=== PATIENT | female | born 1970 | race Caucasian/White ===

== ENCOUNTER 2019-10-12 00:15 | Day surgery (SDC) | payer OTHER, SELFPAY ==
[2019-09-27 15:28] VITALS: BMI 27.4
--- NOTE | 2019-10-11 17:36 | WPDANESEPP ---
Anes - Eval Pre Procedure Procedure: Operation Date: 10/12/19 08:30 Proposed Procedures p Bilateral Breast Implant Exchange - Kd Charles MD Date/Time: 10/11/19 17:36 Pre Op Diagnosis: Hx Of Breast Augmentation Patient Data Age: 49 Gender: F Height: 5 ft 3 in Weight: 70.31 kg Allergies Allergy/AdvReac Type Severity Reaction Status Date / Time erythromycin base Allergy Unknown Vomiting Verified 09/27/19 15:39 morphine Allergy Unknown Vomiting Verified 09/27/19 15:39 Home Medications Medication Instructions Recorded Confirmed Type metformin 1,000 mg tablet 1,000 mg PO BID 09/16/19 09/27/19 History Patient hx anesthesia problems: post op nausea/vomiting Family hx anesthesia problems: none PMFSH Past Medical History Medical History (Updated 10/11/19 @ 17:37 by Macho Holliday CRNA) Anxiety Endometriosis PCOS (polycystic ovarian syndrome) Renal calculi Surgical History Surgical History History of breast augmentation Family History Family History Grandparent Family history of coronary artery disease Diabetes mellitus Father Hypertension Diabetes mellitus Other Family history of cardiovascular disease Social History Social History Smoking status: Former smoker Second hand tobacco smoke exposure: No Smoking end date: 09/08/09 Alcohol intake: current Exam Day of Procedure 10/11/19 17:36
[2019-10-12] VITALS (8 sets, daily range): BP systolic 104–146; BP diastolic 67–99; PULSE 75–110; RESP 10–16; TEMP 36.6–36.9; O2SAT 94–100; BMI 26.8
--- NOTE | 2019-10-12 06:57 | WPDHPUPDATE1 ---
History and Physical Update Update Date/Time: 10/12/19 06:57 History and Physical has been reviewed, including an updated exam of the patient. There are NO changes in the patient's condition. Risks, benefits, and alternatives have been discussed and questions answered. Patient agrees to proceed with procedure.
[2019-10-12] MEDS: LACTATED RINGERS 1,000 ML 30 ML IV CONT ×2 (07:15→10:19)
--- NOTE | 2019-10-12 07:53 | WPDANESEPPF ---
Anes - Initial Pre Proc Eval Procedure: Operation Date: 10/12/19 08:30 Proposed Procedures p Bilateral Breast Implant Exchange - Kd Charles MD Date/Time: 10/12/19 07:53 Surgeon: Kd Charles MD Pre Op Diagnosis: Hx Of Breast Augmentation Patient Data Age: 49 Gender: F Height: 5 ft 3 in Weight: 68.6 kg Last Vital Signs Temp 97.8 F 10/12/19 06:50 Pulse 83 10/12/19 06:50 Resp 16 10/12/19 06:50 BP 104/67 10/12/19 06:50 Pulse Ox 100 10/12/19 06:50 Allergies Allergy/AdvReac Type Severity Reaction Status Date / Time erythromycin base Allergy Unknown Vomiting Verified 09/27/19 15:39 morphine Allergy Unknown Vomiting Verified 09/27/19 15:39 Home Medications Medication Instructions Recorded Confirmed Type metformin 1,000 mg tablet 1,000 mg PO BID 09/16/19 09/27/19 History Patient hx anesthesia problems: post op nausea/vomiting Family hx anesthesia problems: none PMFSH Past Medical History Medical History (Updated 10/11/19 @ 17:37 by Macho Holliday CRNA) Anxiety Endometriosis PCOS (polycystic ovarian syndrome) Renal calculi Surgical History Surgical History History of breast augmentation Family History Family History Grandparent Family history of coronary artery disease Diabetes mellitus Father Hypertension Diabetes mellitus Other Family history of cardiovascular disease Social History Social History Smoking status: Former smoker Second hand tobacco smoke exposure: No Smoking end date: 09/08/09 Alcohol intake: current Anes - Eval Final PreProcedure Day of Procedure 10/12/19 07:53 Patient weight: normal Heart: regular rate and rhythm Lungs: clear to auscultation Airway: Mallampati scale class II Neurological: alert and oriented Last oral intake: >/= 8 hours ASA classification: II Emergent: no Anesthetic plan: proceed Anesthesia type and monitoring: general LMA and standard monitoring Informed Consent: The patient's anesthetic plan and its attendant risks and benefits were discussed with the patient/family/POA. Questions were solicited and answers provided to the satisfaction of the patient/family/POA.
[2019-10-12] MEDS: SCOPOLAMINE 1.5 MG PATCH TRANSDERM (08:00)
[2019-10-12] MEDS: ceFAZolin 2 GM/D5W 50 ML 2 GM/50 ML BAG IVPB (08:29)
[2019-10-12] MEDS: LIDO 1%/EPINEPHRINE 1:100,000 20 ML VIAL 60 ML INFILTRATE (09:45)
--- NOTE | 2019-10-12 10:21 | PM.PROC ---
Procedure Note - Detailed Date of procedure: 10/12/19 Pre-op diagnosis: Hx Of Breast Augmentation Post-op diagnosis: same Procedure performed: Bilateral implant exchange -with capsulectomy - partial -dual plane 2 Description of procedure: She is here today for bilateral breast implant exchange. She has previously had shaped style 410 implants. She has always had a more upper pole fullness than she desired. She would like to exchange for smooth implant. Removal of capsule. They have spent extensive time thinking about this and they have decided they would like to send the capsule to pathology in the understand they will get a charge for this. Previously and again today the risks, benefits, alternatives were discussed in extensive detail. I wanted her to be very realistic about the risks involved as well as expectations. We discussed aftercare and what to monitor for. Made sure answered all of her questions to her satisfaction today and consent was obtained. Marked in the preoperative holding area with their verification. The patient was taken to the operating room placed supine on the operating table. Anesthesia was provided by anesthesiology. A surgical time-out was taken. We cleansed the skin and 1% lidocaine and 0.25% Marcaine with epinephrine was used anesthetize as a field block. She was prepped and draped in a standard sterile fashion. Tegaderm nipple Freeman were placed. A 15 blade used to make an incision at the inframammary fold excising the previous scar. Dissection was continued down until I saw the capsule. I elevated superiorly and removed the majority of the capsule. I did leave the posterior wall intact as was well adherent to the chest wall. I cauterized any remaining capsule. When he removed was sent to pathology. Removed the implants and verified they were intact. I then elevated superficial to the muscle and a dual plane 2 fashion. She had a little bit of glandular ptosis and we had talked about this preoperatively trying to improve this with a dual plane technique. I irrigated with 3 L total of saline on TUR tubing. I then introduced a Sizer and inflated using a fill kit. Tailor tacked into place and placed her in a sitting position to verify the appearance. She had a great sitting on table appearance. I then copiously irrigated with saline solution and verified a strict hemostasis. Next the use a triple antibiotic and Betadine containing solution to irrigate the pocket. I washed my gloves with the triple antibiotic and Betadine solution. We washed the implant immediately upon opening it with this solution and only opened it when we needed it. I used implant funnel and no-touch technique. The implant was introduced into the pocket using the funnel. Having verified positioning of the implant this was closed using 2-0 Vicryl followed by 3-0 Monocryl in a running subcuticular 4-0 Monocryl followed by tissue glue. We once again sat her and verified the appearance. Fluffs, Ed wrap, and surgical bra were placed. Patient was awoke and taken to PACU without difficulty. All instrument sponge counts were correct at the end of the case. Implants: Right: REF SSM-330 SN [id number] Left: REF SSM-[id number] SN [id number] Anesthesia: GLMA Surgeon: Kd Charles MD Estimated blood loss (mL): 10 Drains: No Packing: No Pathology: yes (Bilateral breast capsule) Complications: No immediate complications Condition: stable Disposition: PACU
[2019-10-12] MEDS: ONDANSETRON INJ 4 MG/2 ML VIAL IV PUSH (10:22)
[2019-10-12] MEDS: HYDROMORPHONE HCL 1 MG/ML INJ 0.5 MG IV PUSH ×2 (10:28→10:41)
== END 2019-10-12 12:11 | disposition home or self-care (01) ==
PROVIDERS: PCP Family Medicine; Visit Provider Surgery Plastic and Reconstructive Surgery
PROC: (CPT 19342; principal; 2019-10-12 08:30)
DX: Z45.811 Encounter for adjustment or removal of right breast implant (principal); Z45.812 Encounter for adjustment or removal of left breast implant; E28.2 Polycystic ovarian syndrome; F41.9 Anxiety disorder, unspecified; Z87.891 Personal history of nicotine dependence
CPT/HCPCS: 19325; 19371; 88304; A9270; J0690; J1100; J1170; J1580; J2250; J2405; J2704; J3010; J7030; J7120

== ENCOUNTER 2024-01-01 14:44 | Emergency (ER) | payer BC, SELFPAY ==
--- NOTE | ~2024-01-01 | XR_ITS ---
EXAMINATION: XR finger 5th LT min 2V DATE: 01/01/2024 15:25 INDICATION: Left hand fifth digit pain and swelling. TECHNIQUE: 4 views of left hand fifth digit were obtained. COMPARISON: Left hand radiographs 12/13/2016 FINDINGS: Bone alignment is normal. No fracture. There is mild osteoarthritis of fifth distal interph alangeal joint. There is a periarticular calcification at the dorsal ulnar aspect of distal interphal angeal joint. IMPRESSION: 1. 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 Reviewed, dictated and finalized at location E.
--- NOTE | 2024-01-01 14:51 | ED.GENADULT ---
HPI - General Adult General Chief complaint: Extremity Injury, Upper Stated complaint: INJURED FINGER Source: patient, RN notes reviewed and old records reviewed Mode of arrival: ambulatory Limitations: no limitations History of Present Illness HPI narrative: 53-year-old female presents to [facility] with complaint of left 5th finger pain, swelling this started 3 days ago. Patient denies injury, but states may have done something while she was sleeping. Patient states swelling is worsening, patient states hurts to try to nat instructor or close hand. Patient taking ibuprofen for pain. Related Data Home Medications Medication Instructions Recorded Confirmed metformin 1,000 mg tablet 1,000 mg PO BID 09/16/19 01/01/24 estradiol 0.05 mg/24 hr semiweekly 1 patch transdermal 2XW 01/01/24 01/01/24 transdermal patch progesterone micronized 100 mg 100 mg PO DAILY 01/01/24 01/01/24 capsule Allergies Allergy/AdvReac Type Severity Reaction Status Date / Time erythromycin base Allergy Unknown Vomiting Verified 01/01/24 14:53 morphine Allergy Unknown Vomiting Verified 01/01/24 14:53 Review of Systems Constitutional: Constitutional: Reports no additional constitutional complaints, Denies body ache(s), Denies chills, Denies fatigue, Denies fever(s) and Denies headache(s) Eyes: Eyes: Reports no additional eye complaints and Denies blurry vision ENT: Reports system reviewed and no additional complaints, except as documented, Denies vertigo, Denies dizziness, Denies ear discharge, Denies otalgia, Denies facial pain, Denies headache(s), Denies nasal congestion, Denies nasal discharge, Denies sinus pain, Denies sinus pressure and Denies sore throat Cardiovascular: Cardiovascular: Reports no additional cardiovascular complaints, Denies chest pain, Denies chest pain at rest, Denies rapid heart rate and Denies dyspnea Respiratory: Respiratory: Reports no additional respiratory complaints, Denies chest congestion, Denies cough, Denies pain on inspiration, Denies pain with cough and Denies dyspnea Gastrointestinal: Gastrointestinal: Denies abdominal pain, Denies diarrhea, Denies nausea and Denies vomiting Musculoskeletal: Musculoskeletal: Reports as per HPI Comments: Right 5th finger pain and swelling Integumentary/Breasts: Skin/Breast: Denies rash Neurologic: Reports system reviewed and no additional complaints, except as documented, Denies vertigo, Denies dizziness and Denies headache(s) Endocrine: Endocrine: Denies fatigue [facility] Past Medical History Medical History Anxiety BMI 27.0-27.9,adult Endometriosis PCOS (polycystic ovarian syndrome) Renal calculi Screening for lipid disorders Surgical History Surgical History History of breast augmentation Family History Family History Grandparent Family history of coronary artery disease Diabetes mellitus Father Hypertension Mother No problems noted. Sibling Diabetes mellitus Other Family history of cardiovascular disease Social History Social History Smoking status: Former smoker Second hand tobacco smoke exposure: Yes Smoking end date: 09/08/09 Alcohol intake: current Substance use: never Substance use type: does not use Lack of Transportation: No Lack of Food: Never True Current Housing: I Have Housing Concerned About Future Housing: No Difficulty Paying Gas/Electric Bills: No Difficulty Paying for Meds: No Currently Unemployed: No Education: Bachelor's Degree Difficulty w/ Childcare or Family Care: No Living arrangements: with family Occupation/Education: occupation 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
[2024-01-01 14:55] VITALS: BP 135/89; PULSE 76; RESP 16; TEMP 36.8; O2SAT 99
[2024-01-01 14:56] VITALS: BP 135/89; PULSE 76; RESP 16; TEMP 36.8; O2SAT 99
== END 2024-01-01 15:44 | disposition home or self-care (01) ==
PROVIDERS: Emergency Provider Registered Nurse; PCP Family Medicine
DX: M19.042 Primary osteoarthritis, left hand (principal); Z87.891 Personal history of nicotine dependence; N80.9 Endometriosis, unspecified; E28.2 Polycystic ovarian syndrome
CPT/HCPCS: 73140; 99213; G0463

== ENCOUNTER 2024-06-14 11:55 | Outpatient (CLI) | payer BC, SELFPAY ==
--- NOTE | ~2024-06-14 | XR_ITS ---
XR hand BI arthritis min 3V Ordering provider: Santiago Ramirez MD History: . no injury bilateral hand pain for many years . Comparison: None. FINDINGS: RIGHT HAND: --BONES: Small bony fragment seen near to the base of the right trapezium bone suggestive of sesamoid bone.. Otherwise, No acute fracture or dislocation. No osteopenia. --JOINT SPACES: Well maintained. No erosion, osteophytosis or sclerosis. --SOFT TISSUES: Unremarkable. No soft tissue swelling or nodules. LEFT HAND: --BONES: No acute fracture or dislocation. Small bony fragment seen near to the base of the right tra pezium bone suggestive of sesamoid bone. --JOINT SPACES: Well maintained. No erosion, osteophytosis or sclerosis. --SOFT TISSUES: Unremarkable. No soft tissue swelling or nodules. IMPRESSION: 1. No acute osseous abnormality bilateral hands. 2. No arthritis. Reviewed, dictated and finalized at location A.
== END 2024-06-14 11:56 | disposition home or self-care (01) ==
PROVIDERS: PCP Family Medicine; Visit Provider Family Medicine
DX: M79.641 Pain in right hand (principal); M79.642 Pain in left hand
CPT/HCPCS: 73130

== ENCOUNTER 2025-07-27 07:54 | Outpatient (CLI) | payer BC, SELFPAY ==
--- NOTE | 2025-08-03 20:45 | WPDHOLTEREM ---
Holter/Event Monitor Holter/Event Monitor Date of procedure: 07/27/25 Holter/Event Procedure: 3-7 Day Holter Monitor Image/Tracing Quality: PVC's Conclusion: 1. 3 days holter monitor on 07/27/25. 2. Predominant rhythm is sinus rhythm. HR range 54-207 bpm; average HR 89 bpm. 3. There are rare premature supraventricular complexes, rare supraventricular couplets, and rare supraventricular triplets. There are 2 episodes of supraventricular tachycardia with fastest at 207 bpm and longest lasting 6 beats. 4. There are occasional premature ventricular complexes and rare ventricular couplets. No ventricular tachycardia. 5. No significant pauses greater than 3 seconds. 6. Patient reports 8 episodes of symptoms of shortness of breath, irregular beats, lighteadedness which demonstrate sinus rhythm, HR range 80-113 bpm with 7 episodes with PVC's.
== END 2025-07-27 07:55 | disposition home or self-care (01) ==
PROVIDERS: PCP Family Medicine; Visit Provider Family Medicine
DX: I49.3 Ventricular premature depolarization (principal); I49.1 Atrial premature depolarization; I47.10 Supraventricular tachycardia, unspecified
CPT/HCPCS: 93242